=== PATIENT | male | born 1995 | race Two or more races ===

== ENCOUNTER 2016-04-27 13:28 | Emergency (ER) | payer MEDICAID ==
[~2016-04-27] VITALS: Ht 170.2 cm; Wt 72.6 kg
[2016-04-27 13:45] VITALS: BP 122/61
[2016-04-27] MEDS ORDERED: DEXAMETHASONE SOD PHOSPHATE 4 MG/ML VIAL IM ONE (14:30)
[2016-04-27] MEDS ORDERED: PENICILLIN G BENZATHINE 2.4 MMU/4 ML ML IM ONE ×2 (14:30→14:43)
[2016-04-27] MEDS ORDERED: IBUPROFEN SUSP 100 MG/5 ML UDC PO ONE (14:30)
[2016-04-27] MEDS ORDERED: DEXAMETHASONE SOD PHOSPHATE 10 MG/ML VIAL ONE (14:42)
[2016-04-27] MEDS ORDERED: IBUPROFEN SUSP 100 MG/5 ML UDC ONE (14:42)
== END 2016-04-27 15:40 | disposition home or self-care (01) ==
LOC: ER 13:35
DX: J03.90 Acute tonsillitis, unspecified (principal); J36 Peritonsillar abscess
CPT/HCPCS: 96372 ×2; 99284; A4606; J0558; J1100; Z7610